=== PATIENT | female | born 1980 | race Two or more races ===

== ENCOUNTER 2022-05-29 05:56 | Day surgery (SDC) | payer OTHER ==
[~2022-05-29] VITALS: Ht 157.5 cm; Wt 70.8 kg
[~2022-05-29 05:56] MED LIST: [UNRECOGNIZED DRUG - OTHER] PO
[2022-05-29] MEDS ORDERED: NEURONTIN300 MG PO (10:14)
[2022-05-29] MEDS ORDERED: PERCOCET 5-3251 EACH PO (10:14)
[2022-05-29] MEDS ORDERED: KETO10TA2 PO (10:15)
== END 2022-05-29 15:00 | disposition home or self-care (01) ==
LOC: CIR.AMB 05:56
PROVIDERS: ATTEND Surgery
DX: K64.4 Residual hemorrhoidal skin tags (principal); K64.8 Other hemorrhoids; K62.5 Hemorrhage of anus and rectum; Z20.822 Contact with and (suspected) exposure to COVID-19